=== PATIENT | male | born 1970 | race African-American/Black ===

== ENCOUNTER 2017-02-08 05:12 | Day surgery (SDC) | payer OTHER ==
[2017-01-19 11:57] VITALS: BMI 26.4
[2017-02-08] MEDS ORDERED: MIDAZOLAM HCL 2 MG/2 ML SINGLE DOSE VIAL ONE ×2 (07:20)
--- NOTE | 2017-02-08 08:19 | HP ---
[facility] - Chief Complaint Chief Complaint: right shoulder pain - Past Medical History Allergies/Adverse Reactions: Allergies Allergy/AdvReac Type Severity Reaction Status Date / Time No Known Drug Allergies Allergy Verified 02/08/17 06:33 shellfish derived Allergy "RASH/SWELL Verified 02/08/17 06:33 ING" - Current Medications Current Medications: Home Medications Medication Instructions Recorded Oxycodone HCl/Acetaminophen 1 - 2 tab PO Q6H PRN #50 tablet 02/08/17 [Percocet 5-325 mg Tablet] MDD 8 [facility] Physical Exam - Physical Examination Vital Signs: Vital Signs Period Temp Pulse Resp BP Sys/Louis Pulse Ox Last 24 Hr 97.8 F 76 20 154/101 100 General Appearance: Well Nourished, Well Developed, Alert & Oriented x3 ENT: Clear Lung: Normal air movement Heart: Regular rate & rhythm Extremities: Other (right shoulder- + ttp ,decr rom, + empty can, + neer, + goel, nvi MRI + rct) Neurological: Intact, Alert, Oriented Satellite Impression/Plan - Impression/Plan Impression: right shoulder rct Operative Procedure: right shoulder arthroscopy with RCR, SAD Date to be Performed: 02/08/17
[2017-02-08] MEDS ORDERED: ceFAZolin SODIUM 1 GM VIAL IVPB ONE (08:25)
[2017-02-08] MEDS ORDERED: ROPIVACAINE HCL 0.5% 30ML VIAL ONE (08:34)
--- NOTE | 2017-02-08 09:10 | OP ---
Operative Note - Note: [facility]ative [facility]: [facility] Pre-Operative Diagnosis: right shoulder rct- chronic Operation: right shoulder arthroscopy with SAD, extensive debridement of bone and soft tissue Post-Operative Diagnosis: Same as Pre-op Surgeon: Nayan Mosqueda Echo Vasc Tech: Sky Aleman Anesthesiologist/BUSINESS STRATEGY MANAGER: Feliberto Gould Anesthesia: General, Local Specimens Removed: shavings Estimated Blood Loss (mls): 5 Operative Report Dictated: Yes
[2017-02-08] MEDS ORDERED: ONDANSETRON 4 MG/2 ML VIAL IVPUSH PRN (09:38)
[2017-02-08] MEDS ORDERED: oxyCODONE HCL 5 MG TABLET PO PRN (09:38)
[2017-02-08] MEDS ORDERED: LACTATED RINGERS SOLUTION 1,000 ML IV SCH (09:45)
[2017-02-08 09:51] VITALS: TEMP 98.7
[2017-02-08 10:16] VITALS: PULSE 70
[2017-02-08 11:09] VITALS: BP 155/86
--- NOTE | 2017-02-09 12:34 | PATH ---
Surgical Pathology Report Patient Name: LISA BELLA [facility]. Rec. #: [id number] /Age/Gender: 1970 (Age: 46) / M Account: [id number] Location: [facility] SURGICAL Taken: 02/08/2017 Received: 02/08/2017 Reported: 02/09/2017 Physicians: Nayan Mosqueda M.D. Specimen(s) Received SHAVINGS RIGHT SHOULDER Clinical History Chronic rotator cuff arthritis right shoulder Final Diagnosis SOFT TISSUE, RIGHT SHOULDER, ARTHROSCOPIC SHAVINGS: SYNOVIUM WITH MILD CHRONIC INFLAMMATION; FIBROCARTILAGE WITH MYXOHYALINE DEGENERATION. FRAGMENTS OF UNREMARKABLE BONE AND SKELETAL MUSCLE. Electronically Signed Ricco Vaca M.D. Gross Description Received in formalin, labeled "right shoulder shavings" is a 4.0 x 2.8 x 0.4 cm aggregate of yabrrough-yellow soft tissue fragments. A client account representative portion is submitted in one cassette. 02/08/201702/08/2017
--- NOTE | 2017-02-09 13:01 | OP ---
DATE OF OPERATION: 02/08/2017 PREOPERATIVE DIAGNOSIS: Right rotator cuff tear. POSTOPERATIVE DIAGNOSIS: Right rotator cuff tear. PROCEDURE PERFORMED: Arthroscopy right shoulder with debridement. SURGICAL ATTENDING: Nayan Mosqueda MD OSTOMY NURSE: JOSH Steele ANESTHESIA: General and regional. CLOSURE: 3-0 nylon COMPLICATIONS: None. CONDITION: To the recovery room in stable condition. DESCRIPTION OF PROCEDURE: The patient was taken to the operating room on February 08, 2017. Regional and general anesthesia was administered by the anesthesiologist. IV Kefzol was prophylactically applied throughout the case. The patient was placed in the beach-chair position with all prominences well padded. The right shoulder was prepped and draped in the usual sterile fashion. A posterior portal was then made 15 blade, followed by a blunt trocar. The shoulder was circumferentially and revealed the following: Intact glenoid and humeral head, articular cartilage, intact biceps and biceps anchor, intact labrum circumferentially. Subscapularis intact to its insertion. There was a large rotator cuff tear seen superiorly. The fluid was drained from the shoulder. The trocar was removed. The posterior trocar was redirected to the subacromial space. An accessory lateral portal was then made with a 15 blade and a blunt trocar. Bursectomy was performed, exposing the rotator cuff. The rotator cuff was found to be torn all the way back past the glenoid. The remaining rotator cuff had no mobility to it whatsoever, even mobilizing above and below could not bring the rotator cuff anywhere near its insertion site on the greater tuberosity. The undersurface of the acromion was debrided up to the appropriate level. The coracoacromial ligament was left in situ, as the patient had chronic rotator cuff tear. No repair was performed as the tear was found to be irreparable. The shoulder was irrigated. The portals were closed using 4-0 nylon. A sterile pressure dressing was placed over the shoulder. The patient was awakened from anesthesia and transferred to the recovery room in stable condition. Rachelle [id number]
== END 2017-02-08 12:15 | disposition home or self-care (01) ==
LOC: JASU-SURG 05:12
PROVIDERS: ATTEND Orthopaedic Surgery
PROC: 0RBJ4ZZ Excision of Right Shoulder Joint, Percutaneous Endoscopic Approach (ICD-10-PCS; principal; 2017-02-08 08:00)
DX: M75.121 Complete rotator cuff tear or rupture of right shoulder, not specified as traumatic (principal)
CPT/HCPCS: 88304-TC; 94760

== ENCOUNTER 2020-12-06 09:48 | Emergency (ER) | payer OTHER ==
[2020-12-06 09:54] VITALS: BP 170/118; PULSE 107; TEMP 98; BMI 29.9
[2020-12-06] MEDS ORDERED: KETOROLAC TROMETHAMINE 30 MG/1 ML VIAL IM ONE (10:54)
[2020-12-06] MEDS ORDERED: KETOROLAC TROMETHAMINE 30 MG/1 ML VIAL ONE (10:54)
== END 2020-12-06 12:01 | disposition home or self-care (01) ==
LOC: JER 09:48
PROC: 0H9AXZZ Drainage of Inguinal Skin, External Approach (ICD-10-PCS; principal; 2020-12-06)
PROC: 3E0233Z Introduction of Anti-inflammatory into Muscle, Percutaneous Approach (ICD-10-PCS; 2020-12-06)
DX: L02.811 Cutaneous abscess of head [any part, except face] (principal)
CPT/HCPCS: 99284-25